=== PATIENT | male | born 1990 | race Two or more races ===

== ENCOUNTER 2023-01-15 20:20 | Emergency (ER) | payer OTHER ==
[2023-01-15 20:29] VITALS: BP 140/85; PULSE 100; RESP 18; TEMP 97.8; BMI 29.7
== END 2023-01-16 01:13 | disposition left against medical advice (07) ==
LOC: JER 20:20
DX: R09.89 Other specified symptoms and signs involving the circulatory and respiratory systems (principal)
CPT/HCPCS: 70360-TC-FY; 70490-TC; 74018-TC-FY; 99284-25